=== PATIENT | male | born 1995 | race Two or more races ===

== ENCOUNTER 2024-11-05 03:56 | Inpatient (IN) | payer SELFPAY ==
[2024-11-05] VITALS (56 sets, daily range): BP systolic 128–182; BP diastolic 79–128; PULSE 70–141; RESP 12–23; TEMP 36.7–37.6; O2SAT 96–100; BMI 29.5; BMI 26.4
--- NOTE | 2024-11-05 04:16 | PC.NURSE ---
Pt unable to answer suicide assessment due to being altered from an overdose.
--- NOTE | 2024-11-05 04:24 | PC.NURSE ---
Spoke with Nyasia ARNETT from poison control for possible diphenhydramine overdose. Stated to watch for watch for wide qrs and prolonged qt. tx with benzos to decrease chances of seizures, rhabdo,
--- NOTE | 2024-11-05 04:30 | PC.NURSE ---
[facility] Pt served with copy of [facility] by this RN and security. Pt standing at bedside, not able to follow commands. This RN was standing next to pt to help his use the urinal and pt turned to me and whispered If we sneak out of here, I have a vape we can hit . Attempt to reorient, pt continues to be alerted. Rights read to pt, copy left at bedside.
--- NOTE | 2024-11-05 04:39 | XRR_ITS ---
PROCEDURE INFORMATION: Exam: XR Chest Exam date and time: 11/05/2024 5:17 AM Age: 29 years old Clinical indication: Cough and dyspnea; Additional info: Dyspnea/cough TECHNIQUE: Imaging protocol: Radiologic exam of the chest. Views: 1 view. COMPARISON: No relevant prior studies available. FINDINGS: Lungs: Unremarkable. No consolidation. Pleural spaces: Unremarkable. No pleural effusion. No pneumothorax. Heart/Mediastinum: Unremarkable. No cardiomegaly. Bones/joints: Unremarkable. XR/XR chest 1V portable [id number] IMPRESSION: No acute findings.
--- NOTE | 2024-11-05 04:39 | ECG_ITS ---
[facility] Test Date: 2024-11-05 Pat Name: Andrew Ardon Department: Room: Gender: Male [employer] Operations Supervisor: : 1995 Requested By: Emanuel Aburto Order Number: [id number] Sabrina MD: Renan Herrera M.D. Measurements Intervals Labelle Rate: 133 P: 77 DC: 132 QRS: 102 QRSD: 94 T: 48 QT: 317 QTc: 472 Interpretive Statements SINUS TACHYCARDIA RIGHT AXIS DEVIATION [QRS AXIS > 100] INCOMPLETE RIGHT BUNDLE BRANCH BLOCK [90+ ms QRS DURATION, TERMINAL R IN V1/V2, 40+ ms S IN I/aVL/V4/V5/V6] MODERATE ST DEPRESSION [0.05+ mV ST DEPRESSION] No previous ECG available for comparison Electronically Signed On 11-05-2024 06:19:25 CDT by Renan Herrera M.D. [email or web address]
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
[2024-11-05 04:45] LABS: Basophils # 0.1 10^3/uL (0.0-0.1); Basophils % 0.9 %; Eosinophils # 0.1 10^3/uL (0.0-0.8); Eosinophils % 0.8 %; Hematocrit 51.7 % (37-53); Lymphocytes # 2.5 10^3/uL (0.8-4.8); Lymphocytes % 27.3 %; Mean Corpuscular HGB Conc 31.7 g/dL (30-55); Mean Corpuscular Hemoglobin 27.4 pg (27-33); Mean Corpuscular Volume 86.3 fl (82-101); Monocytes # 0.5 10^3/uL (0.2-0.9); Monocytes % 5.2 %; Neutrophils # 5.98 10^3/uL (1.8-7.7); Neutrophils % 65.4 %; Nucleated Red Blood Cells % 0 %; Platelet Count 290 10^3/cmm (157-399); Red Blood Count 5.99 10^6/uL (3.85-5.65); Red Cell Distribution Width 13.5 % (12.1-15.1); White Blood Count 9.15 10^3/uL (3.29-11.43)
--- NOTE | 2024-11-05 04:51 | CTR_ITS ---
PROCEDURE INFORMATION: Exam: CT Head Without Contrast Exam date and time: 11/05/2024 5:06 AM Age: 29 years old Clinical indication: Altered mental status/memory loss TECHNIQUE: Imaging protocol: Computed tomography of the head without contrast. Radiation optimization: All CT scans at this facility use at least one of these dose optimization techniques: automated exposure control; mA and/or kV adjustment per patient size (includes targeted exams where dose is matched to clinical indication); or iterative reconstruction. COMPARISON: No relevant prior studies available. RADIATION DOSE METRICS: Total DLP (mGy-cm): 1272.7 FINDINGS: Brain: Normal. No hemorrhage. Unremarkable white matter. No mass effect. Cerebral ventricles: No ventriculomegaly. Paranasal sinuses: Visualized sinuses are unremarkable. No fluid levels. Mastoid air cells: Visualized mastoid air cells are well aerated. Bones: Unremarkable. No acute fracture. Soft tissues: Unremarkable. CT/CT head wo con* [id number] IMPRESSION: No acute intracranial abnormality.
[2024-11-05 04:58] LABS: Acetaminophen < 5.0 ug/mL (10-30); Alanine Aminotransferase 16 U/L (0-41); Alcohol Level 154 mg/dL (0-10); Alkaline Phosphatase 67 U/L (40-130); Anion Gap 17.8 (5-19); Aspartate Amino Transferase 20 U/L (0-40); Blood Urea Nitrogen 6 mg/dL (6-20); Calcium 9.3 mg/dL (8.5-10.5); Carbon Dioxide 25 mmol/L (22-29); Chloride 101 mmol/L (98-107); Creatinine Clr Calc Pharmacy 177.0424; Globulin 3.4 g/dL (1.3-4.6); Glomerular Filtration Rate 115.1 mL/min (90-130); Glucose 102 mg/dL (65-115); Osmolality Calculated 288 mOsm/kg (285-295); Potassium 3.8 mmol/L (3.5-5.1); Salicylate < 0.3 mg/dL (3-10); Sodium 140 mmol/L (136-145); Total Bilirubin 0.2 mg/dL (0.15-1.2); Total Protein 8.4 g/dL (6.6-8.7)
[2024-11-05] MEDS: sodium chloride 0.9% 1,000 ML 999 ML IV ×2 (04:58→07:01)
[2024-11-05 06:23] LABS: Bilirubin Urine Negative (Negative); Blood Urine Trace (Negative); Glucose Urine UA Negative (Normal); Ketones Urine Negative (Negative); Leukocyte Esterase Urine Negative (Negative); Nitrate Urine Negative (Negative); Protein Urine Negative (Negative); Urine Appearance Clear (CLEAR); Urine Color Yellow (Yellow); Urobilinogen Urine 0.2 mg/dL (Negative)
[2024-11-05 06:28] LABS: Add Urine Microscopic? YES; Bacteria Urine None Seen /hpf; Hyaline Casts Urine 0-4 /lpf; RBC Urine 0-2 /hpf (0-2); Squamous Epithelial Cell Urine 0-5 /hpf (0-5); WBC Urine 0-5 /hpf (0-5)
[2024-11-05 06:29] LABS: Amphetamines Screen Urine Negative (Negative); Barbiturates Screen Urine Negative (Negative); Benzodiazepines Screen Urine Negative (Negative); Cocaine Screen Urine Negative (Negative); Opiate Screen Urine Negative (Negative); PCP Screen Urine Negative (Negative); THC Screen Urine Negative (Negative)
[2024-11-05 06:30] LABS: Add Urine Culture? No
--- NOTE | 2024-11-05 07:43 | PC.PHAR ---
Pt last filled medication at [facility] in [facility] [phone]-Will follow up when they open, today.
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
[2024-11-05] MEDS: sodium chloride 0.9% 1,000 ML 150 ML IV ×2 (12:05→18:29)
--- NOTE | 2024-11-05 14:20 | PC.NURSE ---
1420 No VTE orders, messaged Dr. Sarabia and ask if he will put in VTE orders.
--- NOTE | 2024-11-05 14:45 | PC.NURSE ---
[address] back [address] Dr[address] Sarabia saying patient is at a low risk regarding VTE, and no further orders at this time.
--- NOTE | 2024-11-05 17:44 | PC.NURSE ---
1744 Patient resting well, no c/o's. VSS. Poison control, Hanane called, updated on condition, and states she is closing out his case since doing very well.
--- NOTE | 2024-11-05 18:10 | PC.NURSE ---
1800 Never did want any lunch, tray had set at bedside all afternoon. Took supper tray in, don't really want it right now, will leave at bedside. Not voided any more in the past few hours he states. No c/o's
[2024-11-05] MEDS: nicotine 21 mg Patch 1 PATCH TRANSDERMA (19:46)
[2024-11-06] VITALS (30 sets, daily range): BP systolic 125–158; BP diastolic 75–106; PULSE 60–94; RESP 12–20; TEMP 36.6–37.5; O2SAT 97–100
[2024-11-06] MEDS: sodium chloride 0.9% 1,000 ML 150 ML IV ×2 (01:30→08:16)
[2024-11-06 03:13] LABS: Basophils # 0.1 10^3/uL (0.0-0.1); Basophils % 0.6 %; Eosinophils # 0.1 10^3/uL (0.0-0.8); Eosinophils % 1.3 %; Hematocrit 42.9 % (37-53); Lymphocytes % 31.2 %; Mean Corpuscular HGB Conc 32.4 g/dL (30-55); Mean Corpuscular Hemoglobin 27.8 pg (27-33); Mean Corpuscular Volume 85.8 fl (82-101); Monocytes # 0.7 10^3/uL (0.2-0.9); Monocytes % 6.7 %; Neutrophils # 5.77 10^3/uL (1.8-7.7); Neutrophils % 59.8 %; Nucleated Red Blood Cells % 0 %; Platelet Count 242 10^3/cmm (157-399); Red Cell Distribution Width 14.1 % (12.1-15.1); White Blood Count 9.67 10^3/uL (3.29-11.43)
[2024-11-06 03:35] LABS: Alanine Aminotransferase 11 U/L (0-41); Albumin Level 3.9 g/dL (3.5-5.2); Alkaline Phosphatase 56 U/L (40-130); Anion Gap 13.7 (5-19); Aspartate Amino Transferase 14 U/L (0-40); Blood Urea Nitrogen 10 mg/dL (6-20); Calcium 8.5 mg/dL (8.5-10.5); Carbon Dioxide 24 mmol/L (22-29); Chloride 104 mmol/L (98-107); Globulin 2.5 g/dL (1.3-4.6); Glomerular Filtration Rate 115.1 mL/min (90-130); Glucose 93 mg/dL (65-115); Osmolality Calculated 285 mOsm/kg (285-295); Potassium 3.7 mmol/L (3.5-5.1); Sodium 138 mmol/L (136-145); Total Bilirubin 0.5 mg/dL (0.15-1.2); Total Protein 6.4 g/dL (6.6-8.7)
--- NOTE | 2024-11-06 07:39 | W.PM.NPUH&PS ---
Providers/Chief Complaint Admitting Physician: Leilani Alas MD Chief Complaint: overdose HPI NPU History of Present Illness Andrew Ardon is a 29 year old male who presented to the emergency department with the following report: Chief Complaint: Overdose Stated Complaint: overdose Time Seen by Provider: 11/05/24 04:36 History of Present Illness: 29-year-old male presents to the emergency room via EMS. His girlfriend called 911 when he was nonresponsive. He was found down on the kitchen floor had been down for an unknown length of time. Last time he was seen awake and conscious have been earlier in the evening. There was a nearly empty Benadryl bottle near him he take an unknown quantity. He had also been reportedly drinking alcohol. Patient will respond to verbal stimuli but does not make any coherent answers. Patient's clothing is wet but his temperature is normal he is tachycardic. He was admitted to the ICU for definitive treatment of those issues. He is unknown to [facility] psychiatry through inpatient or outpatient services. He is from the area but moved away a year ago and is back visiting. There were concerns for an intentional overdose and so he was admitted to the ICU and a psychiatric consult was requested. He presented today reporting: Chief complaint Overdose on diphenhydramine combined with alcohol leading to hospitalization and confusion upon waking in the ICU. History of the present complaint The patient reports a recent incident where he mixed alcohol with diphenhydramine, which he has been taking for years to aid sleep. He usually takes 3 or 4 pills of 50 mg each, despite acknowledging this as a heavy dose. On the day of the incident, he was heavily intoxicated, having consumed alcohol while playing in the rain with his girlfriend. He fell asleep after taking his usual sleeping pills and woke up in the hospital, unable to recall how he got there. His girlfriend noted that his eyes were open but he was unresponsive, prompting her to call for medical assistance. The patient has never mixed alcohol with diphenhydramine before and was surprised by the effects. The patient has a history of anxiety and panic attacks, which began after he turned 22. He attributes the onset of his panic attacks to marijuana use, which he discontinued after experiencing severe anxiety. He has tried various antidepressants but struggles with consistency in taking medication, preferring to manage his anxiety without pharmaceuticals. He reports a history of self-injurious behavior, having scratched his arm about two years ago, but states this was short-lived. The patient has a history of alcohol use, characterized by occasional benders, but does not consider himself a regular drinker. He has attended alcohol classes following a DUI at age 22. He has been to a psychiatric hospital three times since age 29, with the last visit occurring four years ago due to struggles with alcohol and anxiety. He has also engaged in outpatient services, including counseling and therapy, most recently two years ago. The patient describes a significant burden of responsibility, feeling that many people depend on him, including his miguel, who is younger and has a history of mental health challenges. He manages household tasks and supports her due to her lack of parental support and the drinking habits of her family. He expresses feelings of being overwhelmed by these responsibilities. The patient has a family history of mental health issues and addiction, particularly on his father's side. His father in a motorcycle accident, which the patient believes may have been a suicide, although this is not confirmed. His mother has anxiety and COPD. The patient has experienced racism-related challenges, particularly in [place], where he has been involved in fights during school due to racial issues. He identifies as , with a background of black, white, and [place] heritage. The patient has a history of moving frequently and has struggled with connecting to family and forming stable relationships. He dropped out of high school two weeks before graduation and has not obtained a GED. 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 He lives in an [facility] with his agrawal and has one biological child, a [id number] daughter, whom he sees a couple of times a year. Mental health history Has a history of anxiety starting after age 22, with panic attacks leading to cessation of cannabis use. Reports three psychiatric hospitalizations since age 29, with the last occurring four years ago due to alcohol-related issues. Engaged in outpatient services approximately two years ago for support without alcohol use. Has tried several antidepressants but struggles with consistency due to a preference for understanding his body. Experienced self-injurious behavior, specifically scratching his arm, about two years ago. No history of suicidal thoughts or passive wishes, despite losing friends and his father to suicide. Reports a family history of mental health issues and addiction on his father's side, and anxiety on his mother's side. Social history Recently relocated from [place] to [place] with miguel. Staying in an Airbnb near miguel's sister's house. Miguel's family does not approve of him due to racial background. Miguel is younger, aged 20, and has some mental health challenges, possibly schizophrenia. Responsible for household tasks, including cooking and cleaning. Previously lived in [place] for about 11 months. Has a 6-year-old daughter whom he sees a couple of times a year. Works at [employer] in [place], performing various tasks except management. History of alcohol use, with past benders but not a regular drinker. Smokes cigarettes and vapes, has been vaping for about 5 years. No regular use of cannabis, stopped due to panic attacks. No history of drug use beyond experimentation with mushrooms and acid in early adulthood. No history of rehab, but attended alcohol classes following a DUI at age 22. No current legal issues. No history of suicidal thoughts or self-harm beyond scratching arm two years ago. No history of physical or sexual abuse, but experienced racism-related issues in [place]. Dropped out of high school two weeks before graduation, no GED. Identifies as heterosexual. Meds NPU Home Medications ?Medication ?Instructions ?Recorded ?Confirmed ?Last Taken ?Type methocarbamol 500 mg tablet 500 mg PO TID 11/05/24 11/05/24 Unknown History Allergies Allergy/AdvReac Type Severity Reaction Status Date / Time No Known Allergies Allergy Verified 11/05/24 06:34 PFS NPU PFSH: Surgical History H/O wrist surgery Social History Smoking and tobacco/nicotine status: never used tobacco/nicotine Alcohol intake: current Substance/Drug Use: never Mental Status Exam MSE Comments: This is a well-nourished well-developed white male in hospital scrubs with appropriate grooming and eye contact. No abnormal movements except for mild psychomotor retardation. Cooperative with exam in no acute distress. Speech was slightly decreased rate and volume. Mood described as trying to stay positive, affect congruent but slightly subdued. Thought process organized. Thought content: Patient denied suicidal or homicidal ideation, there were no delusions reported or noted, he denied any auditory or visual hallucinations. Denied current thoughts to hurt or kill self or others. Described as an anxious person, with anxiety starting after age 22. Reports trouble sleeping and takes diphenhydramine regularly. Described having a lot of responsibilities and feeling a lot is banking on him. Trying to stay positive. Attention and concentration were intact and memory appeared reliable but none were formally tested. He is alert and oriented x 3. Insight, judgment and impulse control are all appearing fair. Vitals/I&O/Wt Last Vital Signs Temp 98.3 F 11/05/24 16:00 Pulse 81 11/06/24 04:15 Resp 17 11/06/24 04:15 BP 145/101 11/06/24 04:15 Pulse Ox 100 11/06/24 04:15 O2 Del Method Room Air 11/05/24 12:23 11/05/24 11/05/24 11/06/24 14:59 22:59 06:59 Intake Total 960 / 960 1000 / 1960 Output Total 350 / 350 0 / 350 Balance -350 / -350 960 / 610 1000 / 1610 Weight last 48 hrs Weight 101.151 kg Weight 104.326 kg Data NPU 11/06/24 02:50 11/06/24 02:50 A&P Assessment and plan (1) Alcohol intoxication: (2) Suicide attempt: (3) Depression: (4) Anxiety: (5) Accidental overdose: Plan This is a 29-year-old male who is unknown to [facility] through inpatient or outpatient services but has had select specialty hospital services and other locations and presents after a concern for a suicide attempt after he was found unresponsive where he was staying. The patient has a history of anxiety and panic attacks, which have been exacerbated by alcohol consumption and the use of diphenhydramine. There is no indication of suicidal intent or self-harm during this incident, despite the circumstances leading to hospitalization. The patient has a history of substance use issues, including alcohol and cannabis, but currently does not engage in regular use. There is a family history of mental health issues and addiction, particularly on the father's side. The patient has experienced social anxiety and has a significant amount of responsibility, contributing to stress. There is no evidence of psychosis or severe mood disorder at present. 1. Will continue off of medication for the time being. 2. Continue every 15 minute checks for safety. 3. Encourage individual, group and milieu therapy. 4. Encouraged sober living treatments after discharge at the highest level of care to which he is willing to commit. 5. Obtain collateral information. 6. Evaluate against the backdrop of a 96-hour hold. PDMP PDMP Reviewed: Not Reviewed Attestations NPU Medical Necessity Statement*: Inpatient hospitalization is medically necessary and the clinically appropriate intervention at this time. We will monitor medications and make changes and adjustments as indicated. He will be in the hospital for over 2 midnights. Likely length of stay 2-4 days. Coding Level of Care Code Acute Code for Chg Fwd Diagnoses Alcohol intoxication F10.929 Suicide attempt T14.91XA Depression F32.A Anxiety F41.9 Accidental overdose T50.901A
[2024-11-06] MEDS: nicotine 21 mg Patch 1 PATCH TRANSDERMA (08:16)
--- NOTE | 2024-11-06 13:23 | P.PN_ITS ---
Subjective 2 Subjective: He states he feels well this morning. Denies pain or discomfort. No nausea or vomiting. Tolerating breakfast. Tachycardia has resolved. Vitals/I&O/Wt Last Vital Signs Temp 98.4 F 11/06/24 12:16 Pulse 62 11/06/24 12:16 Resp 18 11/06/24 12:16 BP 158/106 11/06/24 12:16 Pulse Ox 97 11/06/24 12:16 O2 Del Method Room Air 11/06/24 12:22 11/05/24 11/06/24 11/06/24 22:59 06:59 14:59 Intake Total 960 / 960 1000 / 1960 1240 / 1240 Output Total 0 / 350 550 / 900 Balance 960 / 610 450 / 1060 1240 / 1240 Weight last 48 hrs Weight 103.5 kg Weight 101.151 kg Weight 104.326 kg Physical Exam 2 Narrative: Awake, conversant. Const: COMMON NORMALS: patient oriented x3 and alert GENERAL APPEARANCE: c ooperative ORIENTATION/CONSCIOUSNESS: Yes awake HENMT: COMMON NORMALS: oropharynx normal Neck/C-Spine: COMMON NORMALS: no JVD Resp: COMMON NORMALS: normal respiratory effort and clear to auscultation bilaterally AUSCULTATION: clear to auscultation bilaterally Cardio: COMMON NORMALS: no JVD, regular rhythm, S1 normal heart sound present, S2 normal heart sound present and No murmurs present (Cardio) RHYTHM: regular rhythm HEART SOUNDS: S1 normal heart sound present and S2 normal heart sound present GI: COMMON NORMALS: Normal to inspection, nondistended, normoactive bowel sounds present, Soft to palpation and non-tender PALPATION: Yes Soft to palpation Extremity: COMMON NORMALS: no joint enlargement and no pedal edema Neuro: COMMON NORMALS: patient oriented x3 and moves all extremities S ENSORIUM/ORIENTATION: Yes alert Skin: COMMON NORMALS: no rashes or lesions noted NARRATIVE SKIN EXAM: Scars from healed parallel cut ross on the inner left forearm. GENERAL SKIN EXAM: no rashes or lesions noted Data 11/06/24 02:50 11/06/24 02:50 A&P Assessment and plan (1) Acute encephalopathy: Resolved. Patient was found unresponsive at home, with a history of taking Benadryl for sleep and combining it with alcohol. No recollection of the previous night. Suspected toxic encephalopathy due to alcohol and Benadryl overdose. Near empty bottle was found nearby. Concern for Benadryl and alcohol interaction causing confusion and possible toxicity. Concern for possible intentional versus unintentional overdose with Benadryl given significant tachycardia, mental status changes. He denies intentionally overdosing. Reports some recent stressors, history of possibly mild undiagnosed depression not formally treated but denies history of suicide or self-harm. He reports history of surgery on the left wrist after playing with knives, with scars after healed parallel cut ross on the inner left forearm. Possible stressor with wanting to back to [place], disapproved by his partner's parent, financial stressor, and health insurance difficulty. Will sign off, feel free to contact in case of questions. (2) Tachycardia: Resolved. Reviewed vitals, CBC, CMP. Discussed with psychiatry, transfer over to neuropsychiatric unit for additional assessment. Heart rate remains elevated (125 BPM) while resting coming down to low 100s. Was higher previously. No current discomfort or other symptoms. Blood pressure also noted to be a little high. 141/101. Reports history of untreated hypertension. History of possible cardiac enlargement incidentally seen on chest x-ray per his life partner. Reviewed chest x-ray, currently without any obvious cardiomegaly. - Monitor heart rate and blood pressure for improvement. - Continue observation until heart rate improves. - Will need to follow-up with primary provider. (3) Insomnia: Revisited with him avoidance of Benadryl as a sleeping agent and especially avoidance of combining Benadryl and alcohol due to severe potential life- threatening complications. She verbalized understanding and agreement. Patient reports chronic difficulty sleeping, has been using Benadryl for sleep for years. Provider discusses risks of Benadryl, especially with alcohol, and recommends sleep hygiene measures. Melatonin suggested as a safer alternative. - Educate patient on sleep hygiene (consistent bedtime, limit screen time, quiet/dark room, avoid stimulation before bed). - Suggest considering melatonin as an [id number]-[id number] alternative for sleep. (4) Depression: Additional assessment by psychiatry. Mild depression (self-reported) : Patient reports mild depression but has never been formally diagnosed or treated. Denies current suicidal ideation or self- harm. No psychiatric care to date. Psychiatry consult planned. It is reported that anxiety is an issue for him that may be contributing to elevation in blood pressure. - Psychiatry consult for further evaluation and management. Plan HTN: Blood pressure is improved but still elevated. Would maintain cardiac diet. May benefit from blood pressure control medication, starting labetalol, may continue at discharge but should follow-up with primary provider upon return home. PDMP PDMP Reviewed: Not Reviewed Attestations 2 Medical Necessity Statement*: Continue hospitalization for assessment management following unresponsive episode, overdose with Benadryl combined with alcohol. and Moderate MDM includes number and complexity of problems actively addressed during encounter and amount and/or complexity of data reviewed/ordered [ previous or external records, resulted lab(s)/test(s) and other healthcare professional discussion] as documented Diagnoses Acute encephalopathy G93.40 Tachycardia R00.0 Insomnia G47.00 Depression F32.A
[2024-11-06] MEDS: labetalol 200 mg Tablet 100 MG PO (14:36)
[2024-11-06] MEDS: nicotine 2 mg Gum BUCCAL (20:35)
[2024-11-06] MEDS: trazodone 50 mg Tablet PO (21:59)
[2024-11-07 06:00] VITALS: BP 111/62; PULSE 91; RESP 18; TEMP 36.9
[2024-11-07] MEDS: nicotine 2 mg Gum BUCCAL ×3 (07:55→14:37)
[2024-11-07] MEDS: labetalol 200 mg Tablet 100 MG PO (08:16)
--- NOTE | 2024-11-07 14:24 | P.NPUDS_ITS ---
Diagnoses at Discharge Discharge Diagnosis (1) Alcohol intoxication: Status: Acute (2) Suicide attempt: Status: Acute (3) Depression: Status: Acute (4) Anxiety: Status: Acute (5) Accidental overdose: Status: Acute Reason for Visit Reason for Visit: overdose Involuntary Hold Information Hold Status: Legal Status: 96 Hour Hold Date/Time Hold Expires: 11/12/2024 @ 0356 Discharge Data Studies Completed and Pending: Completed Studies During Hospitalization Category Date Time Status CT head wo con* 7 0450 Stat Cat Scan 11/05/24 04:51 Completed XR chest 1V ana ble 12203 Stat Exams 11/05/24 04:39 Completed Radiology Impressions Chest X-Ray 11/05/24 04:39 IMPRESSION: No acute findings. Head CT 11/05/24 04:51 IMPRESSION: No acute intracranial abnormality. Laboratory Results WBC 9.67 10^3/uL (3.2 9-11.43) 11/06/24 02:50 RBC 5.00 10^6/uL (3.8 5-5.65) 11/06/24 02:50 Hgb 13.90 g/dL (11.27 -16.99) 11/06/24 02:50 Hct 42.9 % (37-53) 11/06/24 02:50 MCV 85.8 fl (82-101) 11/06/24 02:50 MCH 27.8 pg (27-33) 11/06/24 02:50 MCHC 32.4 g/dL (30-55) 11/06/24 02:50 RDW 14.1 % (12.1-15.1 ) 11/06/24 02:50 Plt Count 242 10^3/cmm (157 -399) 11/06/24 02:50 MPV 9.0 fL (7.4-10.4) 11/06/24 02:50 Neut % (Auto) 59.8 % 11/06/24 02:50 Lymph % (Auto) 31.2 % 11/06/24 02:50 Stephenson % (Auto) 6.7 % 11/06/24 02:50 Eos % (Auto) 1.3 % 11/06/24 02:50 Baso % (Auto) 0.6 % 11/06/24 02:50 Neut # (Auto) 5.77 10^3/uL (1.8 -7.7) 11/06/24 02:50 Lymph # (Auto) 3.0 10^3/uL (0.8- 4.8) 11/06/24 02:50 Stephenson # (Auto) 0.7 10^3/uL (0.2- 0.9) 11/06/24 02:50 Eos # (Auto) 0.1 10^3/uL (0.0- 0.8) 11/06/24 02:50 Baso # (Auto) 0.1 10^3/uL (0.0- 0.1) 11/06/24 02:50 Nucleated RBC % (a uto) 0 % 11/06/24 02:50 Nucleated RBCs # 0.0 /100WBC 11/06/24 02:50 Sodium 138 mmol/L (136-1 45) 11/06/24 02:50 Potassium 3.7 mmol/L (3.5-5 .1) 11/06/24 02:50 Chloride 104 mmol/L (98-10 7) 11/06/24 02:50 Carbon Dioxide 24 mmol/L (22-29) 11/06/24 02:50 Anion Gap 13.7 (5-19) 11/06/24 02:50 BUN 10 mg/dL (6-20) 11/06/24 02:50 Creatinine 0.8 mg/dL (0.7-1. 2) 11/06/24 02:50 GFR Calculation 115.1 mL/min (90- 130) 11/06/24 02:50 Glucose 93 mg/dL (65-115) 11/06/24 02:50 Calculated Osmolal ity 285 mOsm/kg (285- 295) 11/06/24 02:50 Calcium 8.5 mg/dL (8.5-10 .5) 11/06/24 02:50 Total Bilirubin 0.5 mg/dL (0.15-1 .2) 11/06/24 02:50 AST 14 U/L (0-40) 11/06/24 02:50 ALT 11 U/L (0-41) 11/06/24 02:50 Alkaline Phosphata se 56 U/L (40-130) 11/06/24 02:50 Total Protein 6.4 g/dL (6.6-8.7 ) L D 11/06/24 02:50 Albumin 3.9 g/dL (3.5-5.2 ) 11/06/24 02:50 Globulin 2.5 g/dL (1.3-4.6 ) 11/06/24 02:50 Urine Color Yellow (Yellow) 11/05/24 06:07 Urine Appearance Clear (CLEAR) 11/05/24 06:07 Urine pH 6.0 (5-7) 11/05/24 06:07 Ur Specific Gravit y 1.010 (1.005-1.0 30) 11/05/24 06:07 Urine Protein Negative (Negati ve) 11/05/24 06:07 Urine Glucose (UA) Negative (Normal ) 11/05/24 06:07 Urine Ketones Negative (Negati ve) 11/05/24 06:07 Urine Blood Trace (Negative) A 11/05/24 06:07 Urine Nitrate Negative (Negati ve) 11/05/24 06:07 Urine Bilirubin Negative (Negati ve) 11/05/24 06:07 Urine Urobilinogen 0.2 mg/dL (Negati ve) 11/05/24 06:07 Ur Leukocyte Demi ase Negative (Negati ve) 11/05/24 06:07 Urine RBC 0-2 /hpf (0-2) 11/05/24 06:07 Urine WBC 0-5 /hpf (0-5) 11/05/24 06:07 Ur Squamous Epith Cells 0-5 /hpf (0-5) 11/05/24 06:07 Amorphous Sediment Not Reportable 11/05/24 06:07 Urine Bacteria None seen /hpf (N ONE) 11/05/24 06:07 Hyaline Casts 0-4 /lpf H 11/05/24 06:07 Salicylates < 0.3 mg/dL (3-10 ) L 11/05/24 04:38 Urine Opiates Scre en Negative ng/mL (N egative) 11/05/24 06:07 Acetaminophen < 5.0 ug/mL (10-3 0) L 11/05/24 04:38 Ur Barbiturates Sc reen Negative ng/mL (N egative) 11/05/24 06:07 Ur Phencyclidine S crn Negative ng/mL (N egative) 11/05/24 06:07 Ur Amphetamines Sc reen Negative ng/mL (N egative) 11/05/24 06:07 U Benzodiazepines Scrn Negative ng/mL (N egative) 11/05/24 06:07 Urine Cocaine Scre en Negative ng/mL (N egative) 11/05/24 06:07 U Marijuana (THC) Screen Negative ng/mL (N egative) 11/05/24 06:07 Ethyl Alcohol 154 mg/dL (0-10) H 11/05/24 04:38 Vitals: Last Vital Signs Temp 98.5 F 11/07/24 06:00 Pulse 91 11/07/24 06:00 Resp 18 11/07/24 06:00 BP 111/62 11/07/24 06:00 Pulse Ox 97 11/06/24 20:06 O2 Del Method Room Air 11/07/24 06:00 Discharge Plan Discharge Patient Disposition: Home Condition: Stable Prescriptions: New labetalol 200 mg Tablet 100 mg PO BID Qty: 180 0RF Discontinued methocarbamol 500 mg tablet 500 mg PO TID Discharge Orders: Discharge Order (Routine); Ordered 11/07/24 Ordered By: Gibson Lagunas Discharge Diet: Regular Discharge Activity: Resume usual activity Patient Instructions: Labetalol (By mouth), Hypertension (GEN) Activity Restrictions/Additional Instructions: Continue to monitor blood pressure and heart rate at home twice daily. Maintain heart healthy diet and limit sodium intake to less than 2000 mg a day. Target long-term blood pressure 120/80. You are started on blood pressure medication to help achieve these blood pressures. Labetalol helps decrease blood pressure but may slow down the heart rate as well. Skip the medication if your heart rate is less than 60 or blood pressure is less than 100/50. Longstanding hypertension increases risk of cardiovascular disease including heart disease, stroke, kidney disease and other. Follow-up with your primary doctor for continued optimization of blood pressure control and history of possible heart enlargement. Discharge Attestations NPU Time Spent in Discharge Care*: less than 30 min Specific Discharge Activities: Specific discharge activities: educating patient, discussing with case manager specialist/social workers/dc planners, documenting/other paperwork and evaluating patient/reviewing data Coding Level of Care Code Acute Code for Chg Fwd Diagnoses Alcohol intoxication F10.929 Suicide attempt T14.91XA Depression F32.A Anxiety F41.9 Accidental overdose T50.901A
[2024-11-07 14:54] VITALS: BP 111/62; PULSE 78; RESP 18; TEMP 36.9; O2SAT 91
[2024-11-07 14:56] VITALS: BP 111/62; PULSE 91; RESP 18; TEMP 36.9; O2SAT 97
== END 2024-11-07 15:38 | disposition home or self-care (01) | DRG 917 ==
LOC: ER 05:34 → ER IP 06:54 → ICU 10:59 → NP 11-06 11:36
PROVIDERS: Admitting Provider Internal Medicine; Emergency Provider Family Medicine; Visit Provider Internal Medicine
DX: T45.0X2A Poisoning by antiallergic and antiemetic drugs, intentional self-harm, initial encounter (principal); G92.8 Other toxic encephalopathy; F10.129 Alcohol abuse with intoxication, unspecified; T51.0X2A Toxic effect of ethanol, intentional self-harm, initial encounter; F41.9 Anxiety disorder, unspecified; F41.0 Panic disorder [episodic paroxysmal anxiety]; F32.A Depression, unspecified; R00.0 Tachycardia, unspecified; G47.33 Obstructive sleep apnea (adult) (pediatric)
CPT/HCPCS: 36415; 70450; 71045; 80053; 80306; 80307; 81001; 85025; 93005; 97150; 97165; 99285; J7030; J9999